=== PATIENT | female | born 1965 | race Caucasian/White ===

== ENCOUNTER 2021-02-07 16:11 | Emergency (ER) | payer OTHER, SELFPAY ==
[~2021-02-07] VITALS: Ht 154.9 cm; Wt 87.0 kg
[2021-02-07] MEDS ORDERED: SODIUM CHLORIDE 0.9% 1,000ML IVBOLUS ONE (17:00)
[2021-02-07] MEDS ORDERED: SODIUM CHLORIDE FLUSH 10ML SYR IVF ONE (17:00)
--- NOTE | 2021-02-07 17:32 | NUR ---
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
[2021-02-07] MEDS ORDERED: ONDANSETRON 2MG/ML, 2ML IVPush ONE (18:00)
--- NOTE | 2021-02-07 18:07 | NUR ---
PT HAD SOME SCREWS AND A METAL KRYSTAL REMOVED FROM HER ANKLE THIS MORNING AND WAS SENT HOEM WITH OXYs FOR PAIN. PT TOOK THEM AND HAS BEEN NAUSEOUS AND THROWING UP BLOOD. TOOK THE LAST ONE AT 1330 TODAY. IV STARTED. LABS DRAWN. FLUIDS INFUING AT THIS TIME
[2021-02-07 18:16] LABS: BASOPHILS % (AUTO) 1 % (0-1); EOSINOPHILS % (AUTO) 0 % (1-7); LYMPHOCYTES % (AUTO) 15 % (22-44); MEAN CORPUSCULAR HEMOGLOBIN 25.9 pg (27.0-34.8); MEAN CORPUSCULAR HGB CONC 32.2 g/dL (32.4-35.8); MONOCYTES % (AUTO) 4 % (2-9); NEUTROPHILS % (AUTO) 81 % (42-75); PLATELET COUNT 252 x10^3/uL (130-400); RED BLOOD COUNT 3.96 x10^6/uL (3.82-5.3); RED CELL DISTRIBUTION WIDTH 16.6 % (9.6-15.2)
[2021-02-07 18:18] LABS: MD NO
[2021-02-07 18:21] LABS: ALBUMIN 3.8 g/dL (3.4-5.0); ANION GAP 5 mmol/L (5-15); CALCIUM 8.7 mg/dL (8.5-10.1); CHLORIDE 104 mmol/L (98-107)
[2021-02-07] MEDS ORDERED: ONDANSETRON 2MG/ML, 2ML ONE (18:22)
--- NOTE | 2021-02-07 18:25 | NUR ---
PT MEDICATED PER MAR, ICE PACK PROVIDED. VSS.
[2021-02-07 18:26] LABS: ALANINE AMINOTRANSFERASE 187 U/L (12-78); ALKALINE PHOSPHATASE 249 U/L (45-117); BILIRUBIN,TOTAL 0.6 mg/dL (0.2-1.0); CREATININE 0.84 mg/dL (0.55-1.02); TOTAL PROTEIN 7.2 g/dL (6.4-8.2)
[2021-02-07 18:27] LABS: MICROSCOPIC INDICATED
[2021-02-07 19:42] VITALS: BP 127/73
--- NOTE | 2021-02-07 20:08 | NUR ---
PT WAS ABLE TO PASS PO CHALLENGE WITH NO DIFFICULTY.
--- NOTE | 2021-02-07 20:09 | NUR ---
PT WAS ALSO TAUGHT HOW TO USE IS BEFORE DISCHARGE.
== END 2021-02-07 20:08 | disposition home or self-care (01) ==
LOC: ED 18:49
DX: R11.2 Nausea with vomiting, unspecified (principal); R94.5 Abnormal results of liver function studies; I10 Essential (primary) hypertension
CPT/HCPCS: 36415; 80053; 81001; 83690; 85025; 87086; 96361; 96374; 99283; J2405; J7030